=== PATIENT | female | born 1990 | race Hispanic/Latino ===

== ENCOUNTER 2021-10-10 22:30 | Emergency (ER) | payer OTHER ==
[~2021-10-10] VITALS: Ht 157.5 cm; Wt 43.1 kg
[2021-10-10] MEDS ORDERED: HYDR-3421 PO (22:48)
[2021-10-10] MEDS ORDERED: LORAZEPAM 0.5 MG TABLET ONE (22:54)
[2021-10-10] MEDS ORDERED: LORAZEPAM 0.5 MG TABLET PO ONE (23:00)
[2021-10-10 23:20] VITALS: BP 128/68
== END 2021-10-10 23:42 | disposition home or self-care (01) ==
LOC: EDH 22:30
DX: F41.9 Anxiety disorder, unspecified (principal)
CPT/HCPCS: 81025